=== PATIENT | male | born 1995 | race Caucasian/White ===

== ENCOUNTER 2017-06-14 16:19 | Emergency (ER) | payer OTHER ==
[2017-06-14] MEDS ORDERED: Acetaminophen TAB* 325 MG PO ONE (19:15)
--- NOTE | 2017-06-14 19:23 | ED ---
Syncope/Near Syncope - HPI Summary HPI Summary: 21 male presents to ED with complaints of having a syncopal episode that lasted a few seconds while leaving the dentist office around 4pm today. Patient states this occurred one other time a few years ago while he was also at the dentist. Patient states he just received "disturbing, bad" news about a tooth that really seemed to bother him. Patient states he remembers being really stressed out and feeling dizzy and then waking up with a bunch of faces surrounding him, laying on the ground. Was a witnessed fall. LOC for ~5-10 seconds. Patient first fell forward striking forehead on counter top and then fell backward striking back of head on ground. States he only has a mild headache as of right now. No neck or back pain. Denies weakness, chest pain, trouble breathing and feeling lightheaded. No other complaints at this time. No PMHx. No medications [employer]AD[employer]IC DIRECT[employer]. Patient states he does feel a little worked up from the tooth pain he was experiencing. Feels better now. Not on blood thinners. Denies nausea, vomiting and visual changes. - History Of Current Complaint Chief Complaint: EDSyncope Time Seen by Provider: 06/14/17 17:51 Hx Obtained From: Patient Onset/Duration: Sudden Onset, Lasting Minutes - seconds Timing: Constant Context: Witnessed, Loss Of Consciousness Activity At Onset: Exertion - was sitting in dentist office chair and then stood up and was checking out at front counter Associated Head Trauma: Yes Aggravating Factor(s): Nothing Alleviating Factor(s): Spontaneous Resolution Associated Signs And Symptoms: Headache Related History: Similar Episode/Dx as - 4 years ago Frequency: Episodes x___ - 1, Episodes Lasting ____ (in Mins/Days/Weeks/Years) - 10 seconds - Risk Factors Cardiac Risk Factors: Negative Dysrhythmia Risk Factors: Negative Risk Factor(s): Negative - Allergies/Home Medications Allergies/Adverse Reactions: Allergies Allergy/AdvReac Type Severity Reaction Status Date / Time No Known Allergies Allergy Verified 06/14/17 20:41 PMH/Surg Hx/FS Hx/Imm Hx Endocrine/Hematology History: Denies: Hx Diabetes Cardiovascular History: Reports: Hx Syncope - 4 years ago x 1 episode, vasovagal /stress related Denies: Hx Hypertension Respiratory History: Denies: Hx Asthma - Surgical History Surgery Procedure, Year, and Place: n/a - Immunization History Immunizations Up to Date: Yes Infectious Disease History: No Infectious Disease History: Denies: Traveled Outside the [place] in Last 30 Days - Family History Known Family History: Positive: None - Social History Alcohol Use: Rare Substance Use Type: Reports: None Smoking Status (MU): Never Smoked Tobacco Review of Systems Constitutional: Negative Eyes: Negative Cardiovascular: Negative Respiratory: Negative Gastrointestinal: Negative Musculoskeletal: Negative Positive: Headache All Other Systems Reviewed And Are Negative: Yes Physical Exam Triage Information Reviewed: Yes Vital Signs On Initial Exam: Initial Vitals Temp Pulse Resp BP Pulse Ox 98.1 F 58 20 142/80 100 06/14/17 16:41 06/14/17 16:41 06/14/17 16:41 06/14/17 16:41 06/14/17 16:41 Vital Signs Reviewed: Yes Appearance: Positive: Well-Appearing, No Pain Distress, Well-Nourished Skin: Positive: Warm, Skin Color Reflects Adequate Perfusion, Dry, Other - no ecchymosis or edema. Negative: Cold, Cyanosis @, Erythema @ Head/Face: Positive: Other - no racoon eyes or battlesigns. no signs of trauma on scalp or face from injury. Negative: Normal Head/Face Inspection, Scalp - no hematoma Eyes: Positive: Normal, EOMI, MARY, Conjunctiva Clear, Other: - normal visual acuity ENT: Positive: Normal ENT inspection, Hearing grossly normal, Pharynx normal, TMs normal Neck: Positive: Supple, Nontender Respiratory/Lung Sounds: Positive: Clear to Auscultation, Breath Sounds Present. Negative: Rales, Rhonchi, Wheezes Cardiovascular: Positive: Normal, RRR, Pulses are Symmetrical in both Upper and Lower Extremities. Negative: Murmur, Rub Abdomen Description: Positive: Nontender, No Organomegaly, Soft Bowel Sounds: Positive: Present Musculoskeletal: Positive: Normal, Strength/ROM Intact. Negative: Limited @, Interruption @, Pain @, Edema Left, Edema Right Neurological: Positive: Normal - memory and concentration intact, normal neuro exam, Sensory/Motor Intact, Alert, Oriented to Person Place, Time, CN Intact II- III, Reflexes Intact, NV Bundle Intact Distally, Normal Gait Psychiatric: Positive: Normal - [place] Coma Scale Best Eye Response: 4 - Spontaneous Best Motor Response: 6 - Obeys Commands Best Verbal Response: 5 - Oriented Coma Scale Total: 15 Diagnostics - Vital Signs Vital Signs Temp Pulse Resp BP Pulse Ox 06/14/17 16:41 98.1 F 58 20 142/80 100 - Laboratory Result Diagrams: 06/14/17 19:47 06/14/17 19:47 Lab Statement: Any lab studies that have been ordered have been reviewed, and results considered in the medical decision making process. - CT brain CT Interpretation: No Acute Changes - No intracranial mass or hemorrhage is noted. CT Interpretation Completed By: Radiologist - EKG EKG Cardiac Rate: NL EKG Rhythm: Sinus Rhythm ST Segment: Normal Ectopy: None EKG Interpretation: NSR Re-Evaluation - Re-Evaluation First Eval Re-Evaluation Time: 20:15 Change: Improved - after tylenol. updated on labs and imaging results. ready to be d/c. Course/Dx Course Of Treatment: CT brain obtained. Normal PE findings and neurologically intact. Labs obtained and unremarkable. Normal EKG. Does not appear to be any other emergent etiology. Probably due to vasovagal, stress related. No concern for fracture or injury from striking head/fall. Aware of worsening signs and symptoms. Follow up with PCP. Fluids and rest. Normal vitals and felt fine throughout stay. - Diagnoses Differential Diagnosis/HQI/PQRI: Positive: Hyperventilation, Hypovolemia, Vasovagal Episode Provider Diagnoses: Vasovagal episode, Syncope Discharge - Discharge Plan Condition: Stable Disposition: HOME Patient Education Materials: Syncope (ED) [facility] - Additional Instructions: Drink plenty of fluids and get plenty of rest. Tylenol/ibuprofen for headache/pain. Follow up with PCP. Any new worsening or persisting symptoms please seek medical attention immediately.
--- NOTE | 2017-06-14 19:29 | RAD ---
Indication: Syncope, headaches. CT of the brain was performed without IV contrast. Ventricular structures are midline. No midline shift is noted. The extra-axial spaces are unremarkable. There is no evidence of intracranial mass or hemorrhage. No other high or low density lesions are identified. Mastoid air cells and paranasal sinuses are otherwise unremarkable. IMPRESSION: No intracranial mass or hemorrhage is noted.
[2017-06-14 19:54] LABS: Hematocrit 47 % (42-52); Hemoglobin 16.2 g/dl (14.0-18.0); Mean Corpuscular HGB Conc 35 g/dl (31-36); Mean Corpuscular Hemoglobin 32 pg (27-31); Mean Corpuscular Volume 94 fL (80-94); Mean Platelet Volume 9 um3 (7.4-10.4); Red Blood Count 5.01 10^6/ul (4.0-5.4); Red Cell Distribution Width 13 % (10.5-15); White Blood Count 10.6 10^3/ul (3.5-10.8)
[2017-06-14 20:09] LABS: Albumin 4.9 g/dL (3.2-5.2); BUN/Creatinine Ratio 9.4 (8-20); Calcium 9.6 mg/dL (8.6-10.3); EGFR Non-African American 112.7 (>60); Globulin 2.5 g/dL (2-4); Magnesium 1.8 mg/dL (1.9-2.7); Potassium 3.8 mmol/L (3.5-5.0); Total Bilirubin 0.7 mg/dL (0.2-1.0); Total Protein 7.4 g/dL (6.4-8.9)
[2017-06-14] MEDS ORDERED: Amoxicillin PO (*) 250 MG CAP PO ONE (20:16)
[2017-06-14 20:45] VITALS: BP 138/76
[2017-06-14 20:50] LABS: TSH (Thyroid Stimulating Horm) 1.38 mcIU/mL (0.34-5.60)
== END 2017-06-14 20:44 | disposition home or self-care (01) ==
LOC: ED 16:19
DX: R55 Syncope and collapse (principal); R51 Headache
CPT/HCPCS: 36415; 70450; 80053; 83735; 84443; 85025; 93005; 99284; A9270-GY